=== PATIENT | female | born 1965 | race Caucasian/White ===

== ENCOUNTER 2023-03-13 10:38 | Outpatient (OUT) | payer OTHER, SELFPAY ==
[2023-03-13 11:11] LABS: Basophils Absolute Auto 0.1 10^3/uL (0.0-0.1); Basophils Percent Auto 0.8 % (0.2-2.0); Eosinophils Absolute Auto 0.2 10^3/uL (0.0-0.7); Eosinophils Percent Auto 3.6 % (0.9-7.0); Hematocrit 39.7 % (36.0-48.0); Hemoglobin 13.5 g/dL (12.0-16.0); Immature Granulocytes Abs Auto 0.02 10^3/uL (0.00-0.03); Immature Granulocytes Pct Auto 0.3 % (0.0-0.5); Lymphocytes Absolute Auto 1.5 10^3/uL (1.2-3.8); Lymphocytes Percent Auto 24.7 % (20.5-60.0); Mean Corpuscular Hemoglobin 30.2 pg (26.7-34.0); Mean Corpuscular Volume 88.8 fL (81.0-99.0); Mean Platelet Volume 11.4 fL (9.5-13.5); Monocytes Absolute Auto 0.6 10^3/uL (0.3-0.8); Monocytes Percent Auto 9.5 % (1.7-12.0); Neutrophils Absolute Auto 3.6 10^3/uL (1.4-6.5); Neutrophils Percent Auto 61.1 % (43.0-75.0); Platelet Count 238 10^3/uL (150-450); Red Blood Count 4.47 10^6/uL (4.20-5.40); Red Cell Distribution Width 12.9 % (11.0-15.0); White Blood Count 5.9 10^3/uL (4.0-11.0)
--- NOTE | 2023-03-13 11:12 | XR_ITS ---
The [address] [address] Patient Name: DESIRAE MARTEL MRN: [id number] date: 1965 Sex: F Assigned Patient Location: LAB Current Patient Location: LAB Accession/Order Number: [id number] Exam Date: 03/13/2023 11:30 Report Date: 03/13/2023 12:00 At the request of: NELSON CREWS Procedure: XR shoulder RT min 2V PROCEDURE: XR shoulder RT min 2V DATE: 03/13/2023 10:30 AM CDT COMPARISONS: None CLINICAL INDICATION: Right Shoulder Pain M25.511 FINDINGS: There is no evidence of fractures or other acute osseous abnormalities. Mild acromioclavicular degenerative change. The radiopaque marker is cephalad to the acromioclavicular joint. No mass is seen in this area. No clear evidence of hypertrophic osseous changes in this area of palpation. Visualized soft tissue show no abnormalities in these projections. XR/XR shoulder RT min 2V IMPRESSION: Right shoulder radiographs show no evidence of acute abnormalities. Mild acromioclavicular degenerative change. No radiographic evidence of mass. Electronically authenticated by: CAMILA BARDALES Date: 03/13/2023 12:00
[2023-03-13 12:50] LABS: Alanine Aminotransferase 47 U/L (14-59); Albumin Globulin Ratio 1.1; Alkaline Phosphatase 93 U/L (46-116); Aspartate Amino Transferase 22 U/L (15-37); BUN Creatinine Ratio 11.5; Bilirubin Total 0.6 mg/dL (0.2-1.0); Calcium 9.1 mg/dL (8.5-10.1); Carbon Dioxide 28.2 mmol/L (21.0-32.0); Chloride 105 mmol/L (98-107); Chol HDL Ratio 3.5; Cholesterol 204 mg/dL (<=200); Estimated Average Glucose 117 mg/dL; Estimated GFR (African America >60 (>=60); Estimated GFR (Non-African Ame >60 (>=60); Globulin 3.5 g/dL; Glucose 102 mg/dL (74-106); Glycohemoglobin A1C 5.7 % (4.5-6.2); HDL Cholesterol 58 mg/dL (40-60); Potassium 4.2 mmol/L (3.5-5.1); Sodium 140 mmol/L (136-145); Thyroid Stimulating Hormone 2.926 uIU/mL (0.358-3.740); Total Protein 7.5 g/dL (6.4-8.2); Triglycerides 110 mg/dL (<=150)
[2023-03-13 13:34] LABS: Free T4 1.03 ng/dL (0.76-1.46)
== END 2023-03-13 10:39 | disposition home or self-care (01) ==
LOC: LAB 10:43
PROVIDERS: PCP Family Medicine; Visit Provider Family Medicine
DX: Z00.00 Encounter for general adult medical examination without abnormal findings (principal); E78.5 Hyperlipidemia, unspecified; R73.09 Other abnormal glucose; M25.511 Pain in right shoulder
CPT/HCPCS: 36415; 73030; 80053; 80061; 83036; 84436; 84439; 84443; 84479; 85025

== ENCOUNTER 2023-07-22 09:25 | Outpatient (OUT) | payer OTHER, SELFPAY ==
--- NOTE | 2023-07-22 09:30 | MM_ITS ---
Patient Name: DESIRAE MARTEL MR#: [id number] : 1965 Exam Date: 07/22/2023 Ordering Doctor: DR NELSON CREWS . RADIOLOGY REPORT PROCEDURE: MM TOMOSYNTHESIS SCREENING BI COMPARISON: MG MAMM SCREEN 3D XIOMARA CAD, 07/16/2022. MG MAMM SCREEN 3D XIOMARA CAD, 07/12/2021. INDICATIONS: Screening Calculator Name NCI Breast Cancer Risk Assessment Tool 5 Year Breast Cancer Risk 1.30% Lifetime Breast Cancer Risk 9.10% Personal Breast Cancer No Personal Ovarian Cancer No Treatments [id number] Family Cancers None LOCATION: The [facility] BREAST COMPOSITION: Heterogeneously dense,which may obscure small masses. FINDINGS: DIAGNOSTIC CATEGORY 1--NEGATIVE. NO CHANGE FROM COMPARISON ASSESSMENT. Scattered benign-appearing calcifications are present. Scattered benign-appearing lymph nodes are present. RIGHT BREAST: No significant suspicious finding. LEFT BREAST: No significant suspicious finding. RECOMMENDATIONS: ROUTINE MAMMOGRAM AND CLINICAL EVALUATION IN 12 MONTHS. PLEASE NOTE: A NORMAL MAMMOGRAM DOES NOT EXCLUDE THE POSSIBILITY OF BREAST CANCER. A CLINICALLY SUSPICIOUS PALPABLE LUMP SHOULD BE BIOPSIED. Dictated by: Alireza Yoon MD on 07/22/2023 at 14:29 Approved by: Alireza Yoon MD on 07/22/2023 at 14:31
== END 2023-07-22 09:26 | disposition home or self-care (01) ==
LOC: MAMMO 09:25
PROVIDERS: PCP Family Medicine; Visit Provider Family Medicine
DX: Z12.31 Encounter for screening mammogram for malignant neoplasm of breast (principal)
CPT/HCPCS: 77063; 77067

== ENCOUNTER 2024-07-24 09:24 | Outpatient (OUT) | payer OTHER, SELFPAY ==
--- NOTE | 2024-07-24 09:49 | MM_ITS ---
Patient Name: DESIRAE MARTEL MR#: [id number] : 1965 Exam Date: 07/24/2024 Ordering Doctor: DR Kain Montes De Oca . RADIOLOGY REPORT PROCEDURE: MM TOMOSYNTHESIS SCREENING BI COMPARISON: MM TOMOSYNTHESIS SCREENING BI, 07/22/2023. MG MAMM SCREEN 3D XIOMARA CAD, 07/16/2022. INDICATIONS: Screening Calculator Name NCI Breast Cancer Risk Assessment Tool 5 Year Breast Cancer Risk 1.40% Lifetime Breast Cancer Risk 8.90% Personal Breast Cancer No Personal Ovarian Cancer No Treatments [id number] Family Cancers Grandfather-maternal with colon cancer at age 70. LOCATION: The [facility] BREAST COMPOSITION: The breasts are heterogeneously dense,which may obscure small masses. FINDINGS: DIAGNOSTIC CATEGORY 1--NEGATIVE. Scattered benign-appearing calcifications are present. Scattered benign-appearing lymph nodes are present. RIGHT BREAST: No significant suspicious finding. LEFT BREAST: No significant suspicious finding. RECOMMENDATIONS: ROUTINE MAMMOGRAM AND CLINICAL EVALUATION IN 12 MONTHS. PLEASE NOTE: A NORMAL MAMMOGRAM DOES NOT EXCLUDE THE POSSIBILITY OF BREAST CANCER. A CLINICALLY SUSPICIOUS PALPABLE LUMP SHOULD BE BIOPSIED. Dictated by: Alireza Yoon MD on 07/24/2024 at 12:42 Approved by: Alireza Yoon MD on 07/24/2024 at 12:42
== END 2024-07-24 09:25 | disposition home or self-care (01) ==
LOC: MAMMO 09:24
PROVIDERS: PCP Family Medicine; Visit Provider Family Medicine
DX: Z12.31 Encounter for screening mammogram for malignant neoplasm of breast (principal); Z80.0 Family history of malignant neoplasm of digestive organs
CPT/HCPCS: 77063; 77067

== ENCOUNTER 2025-07-26 08:55 | Outpatient (OUT) | payer OTHER, SELFPAY ==
--- OUTSIDE RECORDS SUMMARY | 2025-07-26 08:58 | XMS_ITS | Patient Health Record ---
Author Organization The [facility] [place] Address [address] [place] [address] Care Team Providers Care Fruit Sprayer Name Role Phone Jhon Montes De Oca Primary Care Provider Allergies No Known Allergies Reason For Referral No Information Medications Medication SIG (Take, Route, Frequency, Duration) Notes Start Date End Date Status Biotin ActiveCalciumActiveCPAP -and supplies - daily use daily; Duration: 1 days 4ActiveCPAP Supplies --Mask and TubingActiveDiclofenac Sodium 75 MG1 tablet as needed Orally Twice a day; Duration: 3ActiveOmega 3Active One A Day Women 50 PlusActive Social History Tobacco Use: Social History Observation Description Date Details (start date - stop date) Never Smoker NA - NA Tobacco Use/Smoking Question Answer Notes Patient is a nonsmoker Alcohol Screen (Audit-C) Question Answer Notes Did you have a drink containing alcohol in the p ast year? Yes How often did you have 6 or more drinks on one occasion in the past year?Never (0 point)How many drinks did you have on a typical day when you were drinking in the past year?1 or 2 drinks (0 point)How often did you have a drink containing alcohol in the past year?Weekly (3 points)Raoxsw4ZezquhwxwicobtKtydhgyz Problems Problem Type SNOMED Code ICD Code Onset Dates Problem Status W/U Status Risk Notes Problem Sleep apnea (74738342) Sleep apnea (G47.3 0) ActiveconfirmedProblemDysfunctional uterine bleeding (62914481436919) Dysfunctional uterine bleeding (N93.8)ActiveconfirmedProblemCarcinoma in situ of uterine cervix (15726064)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)Activeconfirmed ProblemComplex ovarian cyst (030266343275)Complex ovarian cyst (N83.299)Active confirmedProblemSmall bowel obstruction (190042096)Small bowel obstruction (K56.609)ActiveconfirmedProblemDisorder of sacrum (74645642)Low back derangement syndrome (M53.86)Activeconfirmed Plan Of Treatment Pending Test Test Name Order Date Sleep Study: Retitration BIPAP/CPAP 04/2023 CBC AUTO DIFF 03/13/2023 GLYCOHEMOGLOBIN A1C 03/13/2023 LIPID PROFILE 03/13/2023 PROF 14(COMP METB) 03/13/2023 THYROID PROFILE WITH TSH 03/13/2023 XR SHOULDER RT 2V or > 03/13/2023 Insurance Providers Payer Name Payer Address Payer Phone Subscriber Number Group Number Insured Name Patient Relationship to Insured Coverage Start Date Coverage End Date [facility] [address] [place] [phone] [id number] Christelle Henry Self - patient is the insured Medications Administered Medication Instructions Date of Administration Dosage Notes Ketorolac Tromethamine mgOrphenadrine [id number] mg Medical (General) History Medical History History ICD Code Carcinoma in situ of cervix D06.9 Complex ovarian cyst N83.299 Dysfunctional uterine bleeding N93.8 Small bowel obstruction K56.609 Surgical History Surgery Date(Month/Year) Cholecystectomy Ovary removal- pre [id number] History Reason Date(Month/Year) see above
--- NOTE | 2025-07-26 09:25 | MM_ITS ---
Patient Name: DESIRAE MARTEL MR#: [id number] : 1965 Exam Date: 07/26/2025 Ordering Doctor: DR NELSON CREWS . RADIOLOGY REPORT PROCEDURE: MM TOMOSYNTHESIS SCREENING BI COMPARISON: MM TOMOSYNTHESIS SCREENING BI, 07/24/2024. MM TOMOSYNTHESIS SCREENING BI, 07/22/2023. MG MAMM SCREEN 3D XIOMARA CAD, 07/16/2022. MG MAMM XIOMARA SCRN W CAD DIG, 04/29/2013. INDICATIONS: Screening Calculator Name NCI Breast Cancer Risk Assessment Tool 5 Year Breast Cancer Risk 1.40% Lifetime Breast Cancer Risk 8.70% Personal Breast Cancer No Personal Ovarian Cancer No Treatments [id number] Family Cancers Grandfather-maternal with colon cancer at age 70. LOCATION: [facility] BREAST COMPOSITION: There are scattered areas of fibroglandular density. FINDINGS: DIAGNOSTIC CATEGORY 1--NEGATIVE. RIGHT BREAST: No significant suspicious finding. LEFT BREAST: No significant suspicious finding. RECOMMENDATIONS: ROUTINE MAMMOGRAM AND CLINICAL EVALUATION IN 12 MONTHS. Dictated by: Luigi Walker MD on 07/26/2025 at 12:48 Approved by: Luigi Walker MD on 07/26/2025 at 12:59
== END 2025-07-26 08:56 | disposition home or self-care (01) ==
LOC: MAMMO 08:55
PROVIDERS: PCP Family Medicine; Visit Provider Family Medicine
DX: Z12.31 Encounter for screening mammogram for malignant neoplasm of breast (principal); Z80.0 Family history of malignant neoplasm of digestive organs
CPT/HCPCS: 77063; 77067